=== PATIENT | female | born 1985 | race African-American/Black ===

== ENCOUNTER 2017-11-20 07:00 | Day surgery (SDC) | payer OTHER ==
[2017-11-20] MEDS ORDERED: BUPIVACAINE 0.5% (SDV) 30 ML INJ (07:21)
[2017-11-20] MEDS ORDERED: GENTAMICIN 80 MG INJ (07:21)
[2017-11-20] MEDS ORDERED: LIDOCAINE 1%/EPI 30 ML INJ (07:21)
[2017-11-20] MEDS ORDERED: MUPIROCIN 2% 15 GM CR (07:21)
[2017-11-20] MEDS ORDERED: FENTAnyl 50 MCG/ML VIAL (07:31)
[2017-11-20] MEDS ORDERED: ROCURONIUM 50 MG INJ (07:32)
[2017-11-20] MEDS ORDERED: CEFAZOLIN 1 GM INJ (07:32)
[2017-11-20] MEDS ORDERED: LIDOCAINE 100 MG SYRINGE (07:32)
[2017-11-20] MEDS ORDERED: SUCCINYLCHOLINE CHLORIDE 100 MG/5 ML SYG IV (07:32)
[2017-11-20] MEDS ORDERED: SUGAMMADEX SODIUM 200 MG/2 ML VIAL IV (07:32)
[2017-11-20] MEDS ORDERED: PROPOFOL 20 ML (07:32)
[2017-11-20] MEDS ORDERED: FENTAnyl 50 MCG/ML VIAL IV ×2 (08:30)
[2017-11-20] MEDS ORDERED: LABETALOL HCL 20MG INJ IV (08:30)
[2017-11-20] MEDS ORDERED: HYDROmorphONE (0.2 MG/ML) 10ML SYG IV ×2 (08:30)
[2017-11-20] MEDS: POLYMYXIN/BACITRACIN 1L IRRIG IRR (08:37)
[2017-11-20] MEDS: LIDOCAINE 1%/EPI 30 ML INJ INJ (08:49)
[2017-11-20] MEDS: BUPIVACAINE 0.5% (SDV) 30 ML INJ INJ (08:50)
[2017-11-20] MEDS ORDERED: KETOROLAC 30 MG INJ (09:15)
[2017-11-20] MEDS ORDERED: PHENYLephrine (100 MCG/ML) 5ML SYG (09:18)
[2017-11-20] MEDS: MUPIROCIN 2% 15 GM CR TOP (09:40)
[2017-11-20] MEDS ORDERED: OXYCODONE/ACETAMINOPHEN (5/325) TAB PO ×2 (10:00→10:30)
[2017-11-20] MEDS: ONDANSETRON 4 MG INJ IV (10:11)
[2017-11-20] MEDS: MEPERIDINE 25 MG INJ IV (10:12)
[2017-11-20] MEDS: HYDROmorphONE (0.2 MG/ML) 10ML SYG IV ×2 (10:30→10:50)
[2017-11-20] MEDS: METOCLOPRAMIDE 10 MG INJ IV (11:47)
== END 2017-11-20 13:00 | disposition home or self-care (01) ==
LOC: SDS 07:00
DX: T85.44XA Capsular contracture of breast implant, initial encounter (principal); Y83.8 Other surgical procedures as the cause of abnormal reaction of the patient, or of later complication, without mention of misadventure at the time of the procedure; I10 Essential (primary) hypertension; E66.01 Morbid (severe) obesity due to excess calories; Z68.37 Body mass index [BMI] 37.0-37.9, adult
CPT/HCPCS: 19371; 88300; 88307